=== PATIENT | female | born 2000 | race Caucasian/White ===

== ENCOUNTER 2024-05-18 20:45 | Emergency (ER) | payer BC, SELFPAY ==
--- NOTE | 2024-05-18 20:47 | ED.GENADULT ---
HPI - General Adult General Chief complaint: Headache Stated complaint: migraine with aura since 2, vomiting Time Seen by Provider: 05/19/24 01:27 Source: patient Mode of arrival: ambulatory Limitations: no limitations History of Present Illness ED Provider: Dr. Yohana Soler HPI narrative: Patient comes to the emergency room complaining of a migraine headache. Patient states that she is known to have migraines, usually takes Fioricet prescribed by her neurologist. Patient states that today diffuse that did not work. Patient has been having nausea and vomiting, and it started with an aura which consists of numbness tingling of the left side of the face and left arm. Patient states that this is usually how it presents. Patient denies any new symptoms. Related Data Previous Rx's ?Medication ?Instructions ?Recorded ketorolac 10 mg tablet 10 mg PO Q8H PRN pain #10 tabs 05/19/24 metoclopramide HCl 5 mg tablet 5 mg PO .T.i.d. PRN nausea and 05/19/24 vomiting #10 tabs Allergies Allergy/AdvReac Type Severity Reaction Status Date / Time No Known Allergies Allergy Verified 05/18/24 20:51 Review of Systems Review of Systems: Constitutional : No Weight loss, No Fever, No Chills, No Night Sweats, No Fatigue, No Malaise ENT/Mouth : No Hearing loss, No Ear Pain, No Nasal Congestion, No Sinus Pain, No Hoarseness, No sore throat, No Rhinorrhea, No Swallowing Difficulty Eyes: No Eye Pain, No Swelling, No Redness, No Foreign Body, No Discharge, No Vision Changes Cardiovascular : No Chest Pain, No SOB, No Dyspnea on Exertion, No Orthopnea, No Edema, No Palpitations Respiratory : No Cough, No Sputum, No Wheezing, No Smoke Exposure, No Dyspnea Gastrointestinal : No Nausea, No Vomiting, No Diarrhea, No Constipation, No abdominal Pain, No Hematochezia, No Melena Genitourinary : no irregular bleeding, No Dysuria, No Urinary Frequency, No Hematuria, No Urinary Incontinence, No Urgency, No Flank Pain, No Urinary Flow Changes, No Hesitancy Musculoskeletal : No joint pain, No Myalgias, No Joint Swelling Skin : No Skin Lesions, No rash Neuro : No Weakness, No Numbness, No Paresthesias, No Loss of Consciousness, No Dizziness, complaining of a migraine headache with an aura consisting of numbness tingling of the left side of the face and left arm and left eye blurred vision Psych : No Anxiety/Panic, No Depression, No SI/HI/AH/VH, No Social Issues, Heme/Lymph: No Bruising, No Bleeding,No Lymphadenopathy Endocrine : No Polyuria, No Polydipsia, No Temperature Intolerance PMFSH Social History Social History Advance Directives: No Advance Directives Information Provided: Yes Do you have a plan to hurt others: No Plan Physical Exam ED Vital Signs: Vital Signs - 24 hr 05/18/24 20:50 05/19/24 01:57 Temperature 97.8 F 98.4 F Pulse Rate 73 76 Respiratory Rate 18 16 Blood Pressure 115/70 112/65 Pulse Oximetry 98 99 Oxygen Delivery Method Room Air Room Air BMI result Body Mass Index 31.8 Const Other: Appearance: Alert. Oriented X3. Patient looks uncomfortable Eyes: Pupils equal, round and reactive to light. Photophobia ENT: Pharynx normal. Neck: Normal inspection. Neck supple. No lymph nodes noted. No crepitus CVS: Normal heart rate and rhythm. Pulses normal. Normal S1 and S2 Respiratory: No respiratory distress. Breath sounds normal. No Wheezing. No rales Abdomen: Soft and nontender. No rigidity. No distention. Skin: Skin warm and dry. Normal skin color. Normal skin turgor. Extremities: No lower extremity edema. No Lacerations. No Rash Neuro: Oriented X 3. No motor deficit. No sensory deficit. Moving all extremities. No slurred speech. CN 2 through 12 grossly intact Psych: calm, cooperative, normal affect Course Course Course Narrative: This is an RME done by TERESITA Gonzales: Additional HPI, ROS, PE not included below will be deferred to primary provider. 23 year old female presents w/ migrane since 2:30 hx of migranes w/ aura. Feels similar to hx. N/V + Medications Administered Discontinued Medications Generic Name Dose Route Start Last Admin Trade Name Freq PRN Reason Stop Dose Admin Diphenhydramine HCl 25 mg 05/18/24 20:48 05/19/24 01:38 Diphenhydramine Hcl 50 Mg/Ml Vial IVPUSH 05/18/24 20:49 Not Given ONCE ONE Diphenhydramine HCl 25 mg 05/19/24 01:32 05/19/24 01:44 Diphenhydramine Hcl 50 Mg/Ml Vial IVPUSH 05/19/24 01:33 25 mg ONCE ONE Administration Sodium Chloride 1,000 mls @ 999 mls/hr 05/19/24 01:32 05/19/24 01:43 Ns IVCONT 05/19/24 02:32 999 mls/hr .Q1H1M ONE Administration Ketorolac Tromethamine 30 mg 05/18/24 20:48 05/19/24 01:39 Ketorolac Tromethamine 30 Mg/Ml Vial IM 05/18/24 20:49 Not Given ONCE ONE Ketorolac Tromethamine 30 mg 05/19/24 01:32 05/19/24 01:42 Ketorolac Tromethamine 30 Mg/Ml Vial IVPUSH 05/19/24 01:33 30 mg ONCE ONE Administration Metoclopramide HCl 10 mg 05/18/24 20:48 05/19/24 01:38 Metoclopramide Hcl 10 Mg/2 Ml Vial IVPUSH 05/18/24 20:49 Not Given ONCE ONE Metoclopramide HCl 10 mg 05/19/24 01:32 05/19/24 01:43 Metoclopramide Hcl 10 Mg/2 Ml Vial IVPUSH 05/19/24 01:33 10 mg ONCE ONE Administration Medical Decision Making Medical Decision Making MDM Narrative: -patient receiving IV fluids, IV Reglan, ketorolac and Benadryl After the IV treatment as mentioned above, patient states that she feels much better now. -patient has no neurological deficits, patient ready for discharge Differential Diagnosis Differential Diagnoses: The differential diagnosis associated with the presentation includes (Migraine headache, tension headache) Admission/Observation Consideration of admission/observation: Escalation of care including admission/observation considered (Given patient's level of discomfort on arrival, observation was considered) Critical Care Time Critical Care Time Critical Care Time: Yes Total Critical Care Time: 30 Attestation: I have personally provided critical care time. Time includes review of lab data, radiology results, discussion with consultants, and monitoring for potential decompensation. Intervention performed as documented. Discharge Plan Discharge Clinical Impression: Migraine Patient Disposition: Home, Self-Care Instructions: Migraine Headache (ED) Additional Instructions: Please follow-up with your primary care physician tomorrow. If you have any worsening or new symptoms, please return to the emergency room or call 911 Prescriptions: New ketorolac 10 mg tablet 10 mg PO Q8H PRN (Reason: pain) Qty: 10 0RF Rx Instructions: Do not use this medication with NSAIDs metoclopramide HCl 5 mg tablet 5 mg PO .T.i.d. PRN (Reason: nausea and vomiting) Qty: 10 0RF Rx Instructions: Take together with ketorolac Print Language: Icelandic
[2024-05-18 20:50] VITALS: BP 115/70; PULSE 73; RESP 18; TEMP 36.6; O2SAT 98; BMI 31.8
[2024-05-19] MEDS: Ketorolac Tromethamine 30 MG/ML VIAL IVPUSH (01:42)
[2024-05-19] MEDS: Metoclopramide HCl 10 MG/2 ML VIAL IVPUSH (01:43)
[2024-05-19] MEDS: 0.9 % Sodium Chloride 1,000 ML 999 ML IVCONT (01:43)
[2024-05-19] MEDS: diphenhydrAMINE HCL 50 MG/ML VIAL 25 MG IVPUSH (01:44)
[2024-05-19 01:57] VITALS: BP 112/65; PULSE 76; RESP 16; TEMP 36.9; O2SAT 99
[2024-05-19 03:20] VITALS: BP 111/65; PULSE 69; RESP 16; TEMP 36.7; O2SAT 100
== END 2024-05-19 03:30 | disposition home or self-care (01) ==
PROVIDERS: Emergency Provider Emergency Medicine
DX: G43.109 Migraine with aura, not intractable, without status migrainosus (principal); R20.2 Paresthesia of skin; R11.2 Nausea with vomiting, unspecified
CPT/HCPCS: 96361; 96374; 96375; 99284; 99285; J1200; J1885; J2765